=== PATIENT | female | born 1965 | race Hispanic/Latino ===

== ENCOUNTER 2018-10-06 05:53 | Day surgery (SDC) | payer OTHER ==
--- NOTE | 2018-10-06 07:38 | Anesthesia Day of Surgery ---
Anesthesia Day of Surgery - Day of Surgery Patient Examined: Yes Patient H&P Reviewed: Yes Patient is NPO: Yes Beta Blockers: No Cardiac Clearance: No Pulmonary Clearance: No Alejo's Test: N/A
--- NOTE | 2018-10-06 07:39 | Anesthesia Consultation ---
Anesthesia Consult and Med Hx - Airway Anesthetic Teeth Evaluation: Good (some pulled in rear) ROM Head & Neck: Adequate Mallampati Class: Class II Intubation Access Assessment: Probably Good - Pulmonary Exam CTA: Yes - Cardiac Exam Cardiac Exam: RRR - Pre-Operative Health Status ASA Pre-Surgery Classification: ASA2 Proposed Anesthetic Plan: MAC - Pulmonary Hx Smoking: No Hx Asthma: No Hx Respiratory Symptoms: No SOB: No COPD: No Home Oxygen Therapy: No Hx Pneumonia: No Hx Sleep Apnea: No - Cardiovascular System Hx Hypertension: Yes Hx Coronary Artery Disease: No Hx Heart Attack/AMI: No
[2018-10-06] MEDS ORDERED: DIPRIVAN 10 MG/ML IV ONE ×4 (08:04→13:37)
--- NOTE | 2018-10-06 08:29 | Short Stay Summary ---
Short Stay Documentation - Allergies and Medications Current Medications: Allergies No Known Allergies Allergy (Verified 10/06/18 08:23) Active Medications Sodium Chloride (Nacl 0.9% 1000 Ml) 1,000 mls @ 50 mls/hr IV DIRECT HUY - Brief post op/procedure progress note Date of procedure: 10/06/18 Pre-op diagnosis: Colon cancer screening Post-op diagnosis: same (1. Colon polyp 2. Diverticulosis coli 3. Internal hemorrhoids) Procedure: Colonoscopy with snare polypectomy and with biopsy Anesthesia: MAC Findings: as above Surgeon: AGATHA ESCOBAR Estimated blood loss: none Pathology: list (1. Polypoid fold hepatic flexure 2. Polyp splenic flexure) Specimen disposition: to lab Condition: stable - Disposition Condition at discharge: Stable Disposition: [id number] TO HOME OR SELFCARE Short Stay Discharge Plan Activity: no restrictions Weight Bearing Status: Full Weight Bearing Diet: regular, low salt Follow up with: BROOKE BLACKMON MD [Other] - 7 Days
[2018-10-06 09:00] VITALS: BP 162/80
[2018-10-06] MEDS ORDERED: NACL 0.9% 1000 ML 1,000 ML IV SCH (09:00)
--- NOTE | 2018-10-06 09:45 | Post Anesthesia Evaluation ---
- Post Anesthesia Evaluation Patient Participated: Yes Airway Patent: Yes Stable Respiratory Function: Yes Nausea/Vomiting: No Temp > 96.8F: Yes Pain Manageable: Yes Adequeate Hydration: Yes Anesthesia Complications: No Block Receding Appropriately: Not Applicable Patient on Ventilator: No
[2018-10-06] MEDS ORDERED: XYLOCAINE 1% 20 mL ONE (13:25)
== END 2018-10-06 05:54 | disposition home or self-care (01) ==
LOC: GIO 05:53
PROVIDERS: ATTEND Internal Medicine Gastroenterology
DX: Z12.11 Encounter for screening for malignant neoplasm of colon (principal); D12.3 Benign neoplasm of transverse colon; K57.30 Diverticulosis of large intestine without perforation or abscess without bleeding; K64.8 Other hemorrhoids; I10 Essential (primary) hypertension; K21.9 Gastro-esophageal reflux disease without esophagitis; Z90.710 Acquired absence of both cervix and uterus; Z98.890 Other specified postprocedural states; Z79.899 Other long term (current) drug therapy
CPT/HCPCS: 45380; 45385; 88305; J2704